=== PATIENT | male | born 1960 | race Caucasian/White ===

== ENCOUNTER 2021-09-07 15:11 | Outpatient (CLI) | payer BC, SELFPAY | END 2021-09-07 15:12 | disposition home or self-care (01) | LOC: SLEEP 15:12 | PROVIDERS: Family Provider General Practice; PCP Internal Medicine; Visit Provider Internal Medicine | DX: G47.10 Hypersomnia, unspecified (principal) | CPT/HCPCS: G0399 ==

== ENCOUNTER 2021-10-14 09:34 | Outpatient (CLI) | payer BC, SELFPAY ==
--- NOTE | 2021-10-14 10:42 | ECG_ITS ---
[facility] Test Date: 2021-10-14 Pat Name: Sam Nieto Department: Room: Gender: Male Consultants Intern: Sultana Roger : 1960 Requested By: Rossana Hdez Order Number: [id number] Christie MD: Rossana Hdez M.D. Interpretive Statements NAME OF STUDY: EXERCISE SESTAMIBI STRESS TEST INDICATION: Chest Pain, elevated calcium score Baseline blood pressure of 146/88 mm Hg, heart rate 76 beats per minute and oxygen saturation 96%. EKG showed normal sinus rhythm, normal axis with nonspecific ST elevation and T wave inversion in lead III. The patient exercised for 9 minutes 21 seconds on a standard [place] protocol. Patient attained a maximum heart rate of 162 beats per minute(101% of the maximum predicted heart rate) with a blood pressure at the peak exercise of 216/78 mm Hg. The EKG at the peak exercise revealed sinus tachycardia with no significant ST-T wave changes. Patient did not have any chest pain or any significant arrhythmis with the exercise. The study was terminated due to exertional fatigue and shortness of breath. During the recovery phase, there were no new changes. Blood pressure at the end of the recovery phase was 155/81 mm Hg with a heart rate of 98 beats per minute and oxygen saturation of 96%. CONCLUSION: 1. Normal EKG response to treadmill exercise 2. No exercise-induced chest pain or cardiac arrhythmia 3. Patient exercised for 9 minutes 21 seconds. Excellent exercise tolerance, attained a maximum of 10.2 METs. Maximum VO2 of 35.7 mL/kg/min. 4. Baseline hypertension with hypertensive response to exercise. 5. Perfusion scan will be documented separately. Electronically Signed On 10-18-2021 18:37:33 CATALOGUE COMPILER by Rossana Hdez M.D. [email or web address]
--- NOTE | 2021-10-14 10:43 | NMCV_ITS ---
NM arley perf SPECT r/s* [id number] Sam Nieto Age: 61 Gender: M : 1960 Exam Date: 10/14/2021 11:15 Ordering Phys: Rossana Hdez MD ([email or web address]) Technologist: SILVESTRE Christianson Exam Location: [facility] Indications: CHEST PAIN STRESS TEST Please see separate stress test report in [facility] for full findings IMAGE PROTOCOL Rest/Stress 1 Exercise Day Radiopharmaceutical Dose (mCi) Administration Site Administered by Rest: Tc-99m 10.8 IV SILVESTRE Owusu Sestamibi Stress:Tc-99m 32.7 IV SILVESTRE Owusu Sestamibi Rest: 14-Oct-2021 60 Discovery 630 Stress: 14-Oct-2021 30 Discovery 630 Radiopharmaceutical was injected at 99% maximum heart rate. Images obtained in supine and prone position. SPECT RESULTS Technical Quality: Excellent Raw Data Analysis: Normal Image Corrections: No attenuation or motion correction applied Summed Stress Score: 0 Summed Rest Score: 1 Summed Difference Score: 0 PERFUSION FINDINGS SPECT images demonstrate homogeneous tracer distribution throughout the myocardium. FUNCTIONAL RESULTS (calculated via Gated SPECT) Stress Image LV EF (%): 62 Stress EDV (mL):106 TID: 0.88 Stress ESV (mL):40 FUNCTIONAL FINDINGS: The left ventricle is normal in size. Transient Ischemia Dilatation of 0.88. There is normal left ventricular systolic function. The left ventricular ejection fraction is normal with a value of 62%. There is normal left ventricular wall thickening with no regional wall abnormality. Normal end diastolic and end systolic volumes. IMPRESSIONS 1. Myocardial perfusion imaging is normal. 2. Overall left ventricular systolic function is normal without regional wall motion abnormalities. 3. The left ventricular ejection fraction is normal with a value of 62%. 4. EKG portion of the study will be reported separately. Please refer to separate report for details. 5. Scan indicates low risk for cardiac events. Rossana Hdez MD (Electronically Signed) Final Date: 16 October 2021 18:08 S
[2021-10-14 10:47] VITALS: BMI 29.1
[2021-10-14 12:25] VITALS: BP 155/81; PULSE 98
== END 2021-10-14 09:35 | disposition home or self-care (01) ==
LOC: RAD 09:36 → CDL 10:45
PROVIDERS: PCP Internal Medicine; Visit Provider Internal Medicine Cardiovascular Disease
DX: R07.9 Chest pain, unspecified (principal)
CPT/HCPCS: 78452; 93017; A9500

== ENCOUNTER 2023-09-01 07:37 | Outpatient (CLI) | payer BC, SELFPAY ==
--- NOTE | 2023-09-01 07:54 | MR_ITS ---
WS: [id number] MRI RIGHT KNEE HISTORY: R KNEE DERANGEMENT COMPARISON: Radiograph 08/21/2023 Anterior cruciate ligament: Intact. Posterior cruciate ligament: Thickening and mucoid degeneration in the posterior cruciate ligament. N o tear. Medial collateral ligament: Increased T2 signal surrounding the MCL but no tear. Posterior lateral corner structures: Intact. Medial menisci: Horizontal tear in the posterior horn extends to the free edge and the inferior artic ular surface. There is also partial subluxation of the meniscus from the joint line and tear extendin g into the body of the meniscus. Mild blunting of the free edge posterior horn. Globular increased si gnal throughout the central posterior meniscus. Anterior horn is normal. Lateral meniscus: Intact. Normal signal, size and shape. Extensor mechanism: Distal quadriceps tendon and patellar tendons are intact. Fluid and soft tissue: Small suprapatellar joint effusion. No Ohara's cyst. Osseous and articular structures: Patellofemoral compartment: Moderate chondromalacia involving the medial patellar facet extending tow ards the patellar eminence. No marrow edema. Medial compartment: Mild narrowing of the medial compartment. Moderate chondromalacia involving the f emoral condyle and the tibial plateau. Cartilage defect extends through the width of the cartilage. N o marrow edema. Lateral compartment: IMPRESSION: 1. Complex tear posterior horn medial meniscus. Tear involves the free edge and the body of the menis cus with a more globular signal in the posterior horn. 2. Mild narrowing medial compartment with moderate chondromalacia involving the femoral condyle and t ibial plateau. 3. Small suprapatellar joint effusion.
== END 2023-09-01 07:38 | disposition home or self-care (01) ==
PROVIDERS: PCP Internal Medicine; Visit Provider Internal Medicine
DX: M23.91 Unspecified internal derangement of right knee (principal); S83.231A Complex tear of medial meniscus, current injury, right knee, initial encounter; X58.XXXA Exposure to other specified factors, initial encounter; M94.261 Chondromalacia, right knee; M25.461 Effusion, right knee
CPT/HCPCS: 73721

== ENCOUNTER → 2023-09-21 14:04 | Outpatient (BNVA) | payer BC, SELFPAY | PROVIDERS: PCP Internal Medicine; Visit Provider Physician Assistant | DX: M17.11 Unilateral primary osteoarthritis, right knee (principal) | CPT/HCPCS: 73560; 73565 ==

== ENCOUNTER 2024-07-10 09:41 | Outpatient (CLI) | payer BC, SELFPAY ==
[2024-07-10 10:55] LABS: Chol HDL Ratio 3.97 mg/dL (1.0-5.00); Cholesterol 123 mg/dL (0-200); HDL Cholesterol 31 mg/dL (60-100); LDL Cholesterol Calculated 52 mg/dL (50-129); LDL HDL Ratio 1.68 RATIO (0.00-3.22); Thyroid Stimulating Hormone 3.07 uIU/mL (0.27-4.20); Triglycerides 202 mg/dL (0-150)
== END 2024-07-10 09:42 | disposition home or self-care (01) ==
LOC: LAB 09:44
PROVIDERS: PCP Internal Medicine; Visit Provider Internal Medicine Cardiovascular Disease
DX: E78.5 Hyperlipidemia, unspecified (principal); N18.9 Chronic kidney disease, unspecified
CPT/HCPCS: 36415; 80061; 84443

== ENCOUNTER 2025-03-25 12:26 | Outpatient (CLI) | payer BC, SELFPAY ==
--- NOTE | 2025-03-25 12:31 | USCV_ITS ---
Sam Nieto Age: 64 Gender: M : 1960 Exam Date: 03/25/2025 13:09 Ordering Phys: Manan Montero MD Technologist: Exam [place] [facility] [place]: CP SOB BP: 135 / 80 HR: 78 Rhythm: Sinus Technical Quality: Adequate MEASUREMENTS (Male / Female) Normal Values 2D ECHO LV Diastolic Diameter PLAX 4.2 cm 4.2 - 5.9 / 3.9 - 5.3 cm IVS Diastolic Thickness 1.5 cm 0.6 - 1.0 / 0.6 - 0.9 cm IVS Systolic Thickness 1.9 cm LVPW Diastolic Thickness 1.3 cm 0.6 - 1.0 / 0.6 - 0.9 cm LVPW Systolic Thickness 1.5 cm LVOT Diameter 2.0 cm LV Ejection Fraction 2D Teich 72.9 % LV Ejection Fraction MOD 4C 78.0 % LV Ejection Fraction MOD 2C 69.2 % LV Ejection Fraction 2C AL 71.8 % LA Diameter 4.0 cm RA Systolic Volume 4C AL 25.2 ml RA Systolic Volume 4C MOD 23.5 ml Aorta at Sinotubular Diameter 3.1 cm IVC Diameter 2.4 cm DOPPLER AV Peak Velocity 117.0 cm/s LVOT Peak Velocity 105.0 cm/s AV Area Cont Eq vti 3.3 cm squared AV Area Cont Eq pk 2.9 cm squared MV Peak Velocity 91.0 cm/s MV Area PHT 3.7 cm squared Mitral E to A Ratio 0.9 TR Peak Velocity 91.0 cm/s TR Peak Gradient 3.3 mmHg TV Peak E Velocity 88.0 cm/s PV Peak Velocity 107.0 cm/s FINDINGS Left Ventricle Left ventricle is normal in size. LV systolic function is normal with EF of 60-65%. No regional wall motion abnormalities are seen Right Ventricle The right ventricle is normal in size and function. Right Atrium The right atrium is normal in size. Left Atrium The left atrium is normal in size. Mitral Valve Structurally normal mitral valve. Mild mitral regurgitation. Aortic Valve Structurally normal aortic valve. No significant stenosis or regurgitation. Tricuspid Valve Insufficient TR jet to calculate RVSP. Pulmonic Valve Not well-visualized. Pericardium Normal pericardium without effusion. Aorta Normal ascending aorta dimension. IVC Not well visualized CONCLUSIONS LV systolic function is normal with EF of 60-65%. Mild mitral regurgitation No comparison studies are available José Miguel Ayala MD (Electronically Signed) Final Date: 30 Mar 2025 15:13 S
== END 2025-03-25 12:27 | disposition home or self-care (01) ==
PROVIDERS: PCP Family Medicine; Visit Provider Family Medicine
DX: R00.0 Tachycardia, unspecified (principal); I34.0 Nonrheumatic mitral (valve) insufficiency
CPT/HCPCS: 93306